=== PATIENT | male | born 1955 | race Caucasian/White ===

== ENCOUNTER 2017-02-05 12:33 | Outpatient (CLI) | payer BC ==
--- NOTE | 2017-02-05 13:48 | RAD ---
ABDOMEN SERIES: Indication: History of kidney stones. Two views provided. FINDINGS: There is punctate calcific density overlying the inferior aspect of the right renal shadow. No obviou s calculi overlying left renal shadow. There is moderate retained fecal material of the colon which d oes partially obscure the renal shadows from view. Scattered osseous degenerative change is present. IMPRESSION: Punctate calcification of the right abdomen overlying inferior aspect of right renal shadow. This is not further localized. POS: CET
== END 2017-02-05 12:34 | disposition home or self-care (01) ==
LOC: RAD 12:33
PROVIDERS: ATTEND Urology
DX: Z87.442 Personal history of urinary calculi (principal); N28.89 Other specified disorders of kidney and ureter
CPT/HCPCS: 74000; 81001